=== PATIENT | male | born 1995 | race African-American/Black ===

== ENCOUNTER 2020-08-09 02:19 | Emergency (ER) | payer OTHER ==
[2020-08-09 03:32] VITALS: BP 129/71; PULSE 91; TEMP 98.1; BMI 21.4
[2020-08-09] MEDS ORDERED: METHOCARBAMOL 500 MG TABLET PO ONE (03:41)
[2020-08-09] MEDS ORDERED: ACETAMINOPHEN 500 MG TABLET (FP) PO ONE (03:41)
[2020-08-09] MEDS ORDERED: LIDOCAINE 5% TOPICAL PATCH TP ONE (03:41)
[2020-08-09] MEDS ORDERED: ACETAMINOPHEN 325 MG TABLET (FP) ONE (03:45)
[2020-08-09] MEDS ORDERED: LIDOCAINE 5% TOPICAL PATCH ONE (03:46)
[2020-08-09] MEDS ORDERED: METHOCARBAMOL 500 MG TABLET ONE (03:46)
[2020-08-09] MEDS ORDERED: LIDOCAINE PATCH REMOVAL MC ONE (15:00)
== END 2020-08-09 04:46 | disposition home or self-care (01) ==
LOC: JER 02:19
DX: M79.10 Myalgia, unspecified site (principal); V87.7XXA Person injured in collision between other specified motor vehicles (traffic), initial encounter
CPT/HCPCS: 99284-25

== ENCOUNTER 2020-08-11 00:47 | Emergency (ER) | payer OTHER ==
[2020-08-11 01:47] VITALS: BP 126/84; PULSE 95; TEMP 99.4; BMI 46.7
[2020-08-11] MEDS ORDERED: METHOCARBAMOL 500 MG TABLET PO ONE (02:05)
[2020-08-11] MEDS ORDERED: IBUPROFEN 600 MG TABLET (FP) PO ONE ×2 (02:07→02:41)
[2020-08-11] MEDS ORDERED: METHOCARBAMOL 500 MG TABLET ONE (02:41)
== END 2020-08-11 03:11 | disposition home or self-care (01) ==
LOC: JER 00:47
DX: M54.5 Low back pain (principal)
CPT/HCPCS: 99283-25

== ENCOUNTER 2021-06-26 16:01 | Emergency (ER) | payer OTHER ==
[2021-06-26 16:09] VITALS: BP 123/72; PULSE 88; TEMP 98; BMI 40.3
[2021-06-26] MEDS ORDERED: IBUPROFEN 600 MG TABLET (FP) PO ONE (16:51)
[2021-06-26] MEDS ORDERED: METHOCARBAMOL 500 MG TABLET PO ONE (16:51)
== END 2021-06-26 17:48 | disposition home or self-care (01) ==
LOC: JERFT 16:01
DX: M54.2 Cervicalgia (principal); M54.50 Low back pain, unspecified; V89.2XXA Person injured in unspecified motor-vehicle accident, traffic, initial encounter; Y92.410 Unspecified street and highway as the place of occurrence of the external cause
CPT/HCPCS: 99283-25

== ENCOUNTER 2024-01-05 11:57 | Emergency (ER) | payer OTHER ==
[2024-01-05 12:15] VITALS: BP 122/86; PULSE 93; RESP 21; TEMP 99.8; BMI 45.1
[2024-01-05] MEDS ORDERED: DEXAMETHASONE SOD PHOSPHATE 10 MG/1 ML VIAL ONE (13:16)
[2024-01-05] MEDS: DEXAMETHASONE SOD PHOSPHATE 10 MG/1 ML VIAL PO ONE (13:19)
[2024-01-05 14:00] LABS: THROAT:GRP A STREP DETECTED (NOTDETECTED)
[2024-01-05] MEDS ORDERED: PENICILLIN G BENZATHINE 1,200,000 UNIT/2 ML PFS IM ONE (14:06)
[2024-01-05] MEDS: PENICILLIN G BENZATHINE 1,200,000 UNIT/2 ML PFS IM ONE (14:09)
== END 2024-01-05 14:11 | disposition home or self-care (01) ==
LOC: JER 11:57
DX: J02.0 Streptococcal pharyngitis (principal); Z20.822 Contact with and (suspected) exposure to COVID-19
CPT/HCPCS: 0241U-QW; 87651; 99284-25; J1100